=== PATIENT | male | born 1995 | race Caucasian/White ===

== ENCOUNTER 2016-08-10 12:01 | Emergency (ER) | payer OTHER ==
[2016-08-10 12:45] VITALS: BP 180/99; PULSE 102; RESP 20; TEMP 98.3
[2016-08-10 13:23] LABS: Appearance,Urine Clear (Clear); Bilirubin,Urine Negative (Negative); Glucose,Urine (UA) Negative (Negative); Ketones,Urine Negative (Negative); Leukocyte Esterase,Urine Negative (Negative); Nitrite,Urine Negative (Negative); Protein,Urine Negative (Negative); Specific Gravity,Urine 1.009 (1.001-1.035); UA Billing (MACRO vs. MICRO) CHEM
--- NOTE | 2016-08-10 13:54 | ED ---
Male Urogenital HPI - General Chief complaint: Urogenital Stated complaint: POSS UTI Time Seen by Provider: 08/10/16 13:11 Source: patient, RN notes reviewed Mode of arrival: ambulatory Limitations: no limitations - History of Present Illness Initial comments: 21-year-old male presents emergency Department chief complaint possible UTI. Patient states she's had some dysuria. Patient denies any penile drainage, hematuria. Patient states that he has some discomfort and has pain all region, suprapubic region. Patient denies any scrotal pain or scrotal swelling. Denies any sores or lesions. Patient states is not sexually active. Patient states that his never had any like this in the past. - Related Data Home Medications Medication Instructions Recorded Confirmed busPIRone HCL [Buspirone HCl] 10 mg PO BID 11/29/14 08/10/16 Losartan [Cozaar] 25 mg PO DAILY 08/10/16 08/10/16 Omeprazole 10 mg PO BID 08/10/16 08/10/16 Previous Rx's Medication Instructions Recorded Phenazopyridine [Pyridium] 200 mg PO TID #6 tablet 08/10/16 Allergies Allergy/AdvReac Type Severity Reaction Status Date / Time No Known Allergies Allergy Verified 08/10/16 12:45 Review of Systems ROS Statement: Those systems with pertinent positive or pertinent negative responses have been documented in the HPI. ROS Other: All systems not noted in ROS Statement are negative. Past Medical History Past Medical History: Hypertension History of Any Multi-Drug Resistant Organisms: None Reported Past Surgical History: No Surgical Hx Reported Past Psychological History: Anxiety Smoking Status: Never smoker Past Alcohol Use History: None Reported Past Drug Use History: None Reported General Exam General appearance: alert, in no apparent distress Head exam: Present: atraumatic, normocephalic, normal inspection Respiratory exam: Present: normal lung sounds bilaterally. Absent: respiratory distress, wheezes, rales, rhonchi, stridor Cardiovascular Exam: Present: regular rate, normal rhythm, normal heart sounds. Absent: systolic murmur, diastolic murmur, rubs, gallop, clicks GI/Abdominal exam: Present: soft, normal bowel sounds. Absent: distended, tenderness, guarding, rebound, rigid Course Vital Signs 08/10/16 12:41 Temperature 98.3 F Pulse Rate 102 H Respiratory 20 Rate Blood Pressure 180/99 O2 Sat by Pulse 100 Oximetry Medical Decision Making - Medical Decision Making For 1-year-old male present emergency department for dysuria. Patient has no evidence UTI. Patient states his nonsexual active and does not want to be treated for STDs. Patient we given pyorrhea. Patient will be discharged. - Lab Data Lab Results 08/10/16 Range/Units 13:10 Urine Color Yellow Urine Appearance Clear (Clear) Urine pH 7.0 (5.0-8.0) Ur Specific [place] 1.009 (1.001-1.035) Urine Protein Negative (Negative) Urine Glucose (UA) Negative (Negative) Urine Ketones Negative (Negative) Urine Blood Negative (Negative) Urine Nitrate Negative (Negative) Urine Bilirubin Negative (Negative) Urine Urobilinogen 2.0 (<2.0) mg/dL Ur Leukocyte Esterase Negative (Negative) Disposition Clinical Impression: Dysuria Disposition: HOME SELF-CARE Condition: Stable Instructions: Dysuria (ED) Additional Instructions: Please return to the Emergency Department if symptoms worsen or any other concerns. Prescriptions: Phenazopyridine [Pyridium] 200 mg PO TID #6 tablet Time of Disposition: 13:53
== END 2016-08-10 14:04 | disposition home or self-care (01) ==
LOC: EC 12:01
DX: R30.0 Dysuria (principal); I10 Essential (primary) hypertension; F41.9 Anxiety disorder, unspecified; Z79.899 Other long term (current) drug therapy
CPT/HCPCS: 81003; 87086; 87491; 87591; 99283